=== PATIENT | female | born 1970 | race Caucasian/White ===

== ENCOUNTER → 2018-02-13 | Outpatient (CLI) | payer BC | END | disposition home or self-care (01) | LOC: RAD 15:56 → EDSTATUS 16:00 | PROVIDERS: ATTEND Internal Medicine Cardiovascular Disease | DX: I10 Essential (primary) hypertension (principal); E78.5 Hyperlipidemia, unspecified; R07.89 Other chest pain | CPT/HCPCS: 93306 ==

== ENCOUNTER → 2021-02-25 | Outpatient (CLI) | payer OTHER ==
[~2021-02-25] MED LIST: CHOL10003 PO; CYAN100072 PO; EZET10TA70 PO; KRIL1CAP7 PO; LISI1TAB23 PO; Magnesium PO; RED600TA PO; UBID100C41 PO; [UNRECOGNIZED DRUG - OTHER] PO
[2021-02-25 14:31] LABS: ALANINE AMINOTRANSFERASE 34 U/L (12-78); ALBUMIN 4.2 g/dL (3.4-5.0); ANION GAP 5 mmol/L (5-15); CALCIUM 9.7 mg/dL (8.5-10.1); CHLORIDE 104 mmol/L (98-107); CREATININE 0.81 mg/dL (0.55-1.02)
[2021-02-25 14:35] LABS: BASOPHILS % (AUTO) 2 % (0-1); EOSINOPHILS % (AUTO) 6 % (1-7); LYMPHOCYTES % (AUTO) 31 % (22-44); MEAN CORPUSCULAR HGB CONC 33.6 g/dL (32.4-35.8); MEAN PLATELET VOLUME 8.5 fL (7.4-10.4); MONOCYTES % (AUTO) 8 % (2-9); NEUTROPHILS % (AUTO) 53 % (42-75); PLATELET COUNT 315 x10^3/uL (130-400); RED BLOOD COUNT 4.73 x10^6/uL (3.82-5.3); RED CELL DISTRIBUTION WIDTH 12.9 % (9.6-15.2)
[2021-02-25 14:36] LABS: ALKALINE PHOSPHATASE 68 U/L (45-117); BILIRUBIN,TOTAL 0.4 mg/dL (0.2-1.0); TOTAL PROTEIN 8.1 g/dL (6.4-8.2)
[2021-02-25 14:41] LABS: INTERNATIONAL NORMALIZED RATIO 1.02 (0.93-1.1); PROTHROMBIN TIME 10.9 Seconds (9.6-11.5)
== END | disposition home or self-care (01) ==
LOC: STAR 13:26
PROVIDERS: ATTEND Surgery
DX: Z01.818 Encounter for other preprocedural examination (principal)
CPT/HCPCS: 36415; 80053; 82378; 85025; 85610; 93005

== ENCOUNTER 2021-03-04 10:06 | Inpatient (IN) | payer OTHER ==
[~2021-03-04] VITALS: Ht 177.8 cm; Wt 95.3 kg
[~2021-03-04 10:06] MED LIST changes: +BUPIVACAINE/PF 0.5% ONE; +EPINEPHRINE 1 MG/ML, 1ML ONE; +INDOCYANINE GREEN 25 MG VIAL ONE
[2021-03-04] MEDS ORDERED: LIDOCAINE-MPF 1%, 2ML ONE (10:59)
[2021-03-04] MEDS ORDERED: LACTATED RINGERS 1,000 ML IV SCH (11:00)
[2021-03-04] MEDS ORDERED: PROMETHAZINE 25 MG/ML, 1ML IVPush PRN (11:00)
[2021-03-04] MEDS ORDERED: LABETALOL 5MG/ML, 20ML IV PRN (11:00)
[2021-03-04] MEDS ORDERED: DIPHENHYDRAMINE 50 MG/ML, 1ML IVPush PRN ×2 (11:00→16:00)
[2021-03-04] MEDS ORDERED: ACETAMINOPHEN 325 MG TABLET PO PRN (11:00)
[2021-03-04] MEDS ORDERED: LIDOCAINE-MPF 1%, 2ML INFIL ONE (11:00)
[2021-03-04] MEDS ORDERED: MEPERIDINE/PF 25MG/0.5ML IVPush PRN (11:00)
[2021-03-04] MEDS ORDERED: OXYcodone 5 MG/5 ML ORAL.SOL UDC PO PRN (11:00)
[2021-03-04] MEDS ORDERED: FENTANYL PF 100 MCG/2ML IV PRN (11:00)
[2021-03-04] MEDS ORDERED: HALOPERIDOL 5 MG/ML IV PRN (11:00)
[2021-03-04] MEDS ORDERED: hydrALAzine 20 MG/ML, 1ML IV PRN (11:00)
[2021-03-04] MEDS ORDERED: CHLORHEXIDINE 15 ML UDC PO ONE (11:00)
[2021-03-04] MEDS ORDERED: MIDAZOLAM 1 MG/ML, 2ML ONE (11:02)
[2021-03-04] MEDS ORDERED: FENTANYL PF 250 MCG/5ML ONE (11:02)
[2021-03-04] MEDS ORDERED: HYDROmorphone 1 MG/ML, 1ML INJ ONE (14:24)
[2021-03-04] MEDS ORDERED: METOPROLOL 1 MG/ML, 5ML ONE (14:38)
[2021-03-04] MEDS ORDERED: ROCURONIUM 10MG/ML,5ML ONE (15:13)
[2021-03-04] MEDS ORDERED: NEOSTIGMINE 1 MG/ML, 10ML ONE (15:13)
[2021-03-04] MEDS ORDERED: ONDANSETRON 2MG/ML, 2ML ONE ×2 (15:13→17:42)
[2021-03-04] MEDS ORDERED: GLYCOPYRROLATE 0.2MG/1ML, 5ML ONE (15:13)
[2021-03-04] MEDS ORDERED: DEXAMETHASONE 4 MG/ML, 1ML ONE (15:13)
[2021-03-04] MEDS ORDERED: SUCCINYLCHOLINE 20 MG/ML, 10ML ONE (15:13)
[2021-03-04] MEDS ORDERED: PROPOFOL 10 MG/ML, 20ML ONE (15:13)
[2021-03-04] MEDS ORDERED: CEFAZOLIN 1,000 MG ONE (15:13)
[2021-03-04] MEDS ORDERED: LORazepam 2 MG/ML, 1ML ONE (15:47)
[2021-03-04] MEDS ORDERED: HYDROmorphone 2 MG/ML, 1ML ONE (15:47)
[2021-03-04] MEDS: HYDROmorphone 1 MG/ML, 1ML INJ IVPush PRN ×3 (15:48→16:14)
[2021-03-04] MEDS ORDERED: METHOCARBAMOL 1,000 MG in DEXTROSE 5% 100 ML IV STA (15:54)
[2021-03-04] MEDS: GABAPENTIN 100 MG CAPSULE PO SCH ×2 (16:00→21:01)
[2021-03-04] MEDS ORDERED: LORazepam 2 MG/ML, 1ML IVPush PRN ×2 (16:00→16:30)
[2021-03-04] MEDS: ACETAMINOPHEN 500 MG TABLET PO SCH ×2 (16:00→21:11)
[2021-03-04] MEDS ORDERED: LORazepam 1MG TABLET PO PRN (16:00)
[2021-03-04] MEDS ORDERED: HYDROmorphone 1 MG/ML, 1ML INJ IVPush PRN (16:00)
[2021-03-04] MEDS ORDERED: DIPHENHYDRAMINE 25 MG CAPSULE PO PRN (16:00)
[2021-03-04] MEDS ORDERED: ONDANSETRON 2MG/ML, 2ML IVPush PRN (16:00)
[2021-03-04] MEDS ORDERED: HALOPERIDOL 5 MG/ML IVPush PRN (16:00)
[2021-03-04] MEDS ORDERED: DEXAMETHASONE 4 MG/ML, 1ML IVPush PRN (16:00)
[2021-03-04] MEDS ORDERED: CALCIUM CARBONATE 500 MG TAB.CHEW PO PRN (16:00)
[2021-03-04] MEDS ORDERED: hydrALAzine 20 MG/ML, 1ML ONE (16:43)
[2021-03-04] MEDS ORDERED: D5%-0.45NACL+KCL 20MEQ 1,000 ML IV SCH (19:49)
[2021-03-04] MEDS ORDERED: ACETAMINOPHEN 100 ML IVPB SCH (20:00)
[2021-03-04 20:28] VITALS: BP 105/72
[2021-03-04] MEDS: ACETAMINOPHEN 100 ML IVPB SCH (21:01)
[2021-03-04] MEDS: OXYcodone IR 5MG TABLET PO PRN (21:01)
[2021-03-05 00:38] VITALS: BP 123/83
[2021-03-05] MEDS: ACETAMINOPHEN 500 MG TABLET PO SCH ×4 (02:33→22:14)
[2021-03-05] MEDS: OXYcodone IR 5MG TABLET PO PRN ×5 (02:57→20:15)
[2021-03-05 03:17] LABS: BASOPHILS % (AUTO) 0 % (0-1); EOSINOPHILS % (AUTO) 0 % (1-7); LYMPHOCYTES % (AUTO) 8 % (22-44); MEAN CORPUSCULAR HEMOGLOBIN 31.8 pg (27.0-34.8); MEAN CORPUSCULAR HGB CONC 33.8 g/dL (32.4-35.8); MEAN PLATELET VOLUME 8.2 fL (7.4-10.4); MONOCYTES % (AUTO) 6 % (2-9); NEUTROPHILS % (AUTO) 85 % (42-75); PLATELET COUNT 287 x10^3/uL (130-400); RED BLOOD COUNT 4.31 x10^6/uL (3.82-5.3); RED CELL DISTRIBUTION WIDTH 12.5 % (9.6-15.2)
[2021-03-05] MEDS: ACETAMINOPHEN 100 ML IVPB SCH ×3 (03:28→15:30)
[2021-03-05 03:29] LABS: ANION GAP 6 mmol/L (5-15); CALCIUM 8.9 mg/dL (8.5-10.1); CHLORIDE 105 mmol/L (98-107); CREATININE 0.78 mg/dL (0.55-1.02)
[2021-03-05 08:00] VITALS: BP 121/76
[2021-03-05] MEDS: EZETIMIBE 10 MG TABLET PO SCH (08:40)
[2021-03-05] MEDS: GABAPENTIN 100 MG CAPSULE PO SCH ×3 (08:40→20:15)
[2021-03-05] MEDS: ENOXAPARIN 40 MG/0.4 ML SQ SCH (08:40)
[2021-03-05 14:20] VITALS: BP 117/76
[2021-03-05 19:59] VITALS: BP 123/80
[2021-03-06] MEDS: OXYcodone IR 5MG TABLET PO PRN ×5 (00:05→14:30)
[2021-03-06 00:24] VITALS: BP 116/78
[2021-03-06] MEDS: ACETAMINOPHEN 500 MG TABLET PO SCH ×3 (03:12→16:20)
[2021-03-06 04:08] LABS: BASOPHILS % (AUTO) 1 % (0-1); EOSINOPHILS % (AUTO) 3 % (1-7); LYMPHOCYTES % (AUTO) 34 % (22-44); MEAN CORPUSCULAR HEMOGLOBIN 31.9 pg (27.0-34.8); MEAN CORPUSCULAR HGB CONC 33.8 g/dL (32.4-35.8); MEAN PLATELET VOLUME 8.3 fL (7.4-10.4); MONOCYTES % (AUTO) 9 % (2-9); NEUTROPHILS % (AUTO) 53 % (42-75); PLATELET COUNT 234 x10^3/uL (130-400); RED CELL DISTRIBUTION WIDTH 12.6 % (9.6-15.2)
[2021-03-06 04:22] LABS: ANION GAP 7 mmol/L (5-15); CALCIUM 8.7 mg/dL (8.5-10.1); CHLORIDE 106 mmol/L (98-107); CREATININE 0.58 mg/dL (0.55-1.02)
[2021-03-06] MEDS ORDERED: OXYC5TAB2 PO (06:51)
[2021-03-06 08:14] VITALS: BP 126/78
[2021-03-06] MEDS: GABAPENTIN 100 MG CAPSULE PO SCH ×2 (08:26→16:20)
[2021-03-06] MEDS: EZETIMIBE 10 MG TABLET PO SCH (08:27)
[2021-03-06] MEDS: ENOXAPARIN 40 MG/0.4 ML SQ SCH (08:27)
[2021-03-06] MEDS ORDERED: CELE200C PO (08:32)
[2021-03-06] MEDS ORDERED: GABA300C PO (08:33)
[2021-03-06 15:30] VITALS: BP 133/90
== END 2021-03-06 16:45 | disposition home or self-care (01) | DRG 331 ==
LOC: ORIP 10:06 → 4NE 19:15
PROVIDERS: ADMIT Surgery; ATTEND Surgery
PROC: 8E0W4CZ Robotic Assisted Procedure of Trunk Region, Percutaneous Endoscopic Approach (ICD-10-PCS; 2021-03-04)
PROC: 0DBN4ZZ Excision of Sigmoid Colon, Percutaneous Endoscopic Approach (ICD-10-PCS; principal; 2021-03-04 12:30)
PROC: 0DBP4ZZ Excision of Rectum, Percutaneous Endoscopic Approach (ICD-10-PCS; 2021-03-04 12:30)
DX: D12.6 Benign neoplasm of colon, unspecified (principal)
CPT/HCPCS: 36415; 80048; 85025; 86140; 86850; 86900; 88305; 88309; G0378; J0131; J0171; J0690; J1100; J1170; J1650; J2250; J2405; J2704; J2710; J3010; J0330; J0360; J2060; J2800; J7120